=== PATIENT | male | born 1965 | race Caucasian/White ===

== ENCOUNTER 2020-01-29 17:33 | Emergency (ER) | payer OTHER ==
[2020-01-29] MEDS ORDERED: LACTATED RINGERS SOLUTION 1000 ML INFUS.BAG IV ONE (17:52)
--- NOTE | 2020-01-29 17:52 | PDOC ---
Documentation entered by Vidhi Silveira SCRIBE, acting as scribe for Rosalva Mariee DO. Rosalva Mariee DO: This documentation has been prepared by the adrianeibe, Vidhi Silveira SCRIBE, under my direction and personally reviewed by me in its entirety. I confirm that the documentation accurately reflects all work, treatment, procedures, and medical decision making performed by me. History of Present Illness - General Chief Complaint: Chest Pain Stated Complaint: CHEST PAIN X 20 SECONDS History Source: Patient Exam Limitations: No Limitations - History of Present Illness Initial Comments: 01/29/20 18:09 The patient is a 54-year-old male with a past medical history significant for Thyroid CA s/p total thyroidectomy, HLD, Ascending aortic aneurysm (recent CT 2 weeks ago, aneurysm measuring at 4.9cm, next CT and stress echo in 3 months), bicuspid aortic valve and skull fracture (at age 22) who presents to the emergency department with chest pain. The patient reports about 15 minutes prior to arrival he was watching TV, he had an acute onset of sharp, intense, quick left sided chest pain lasting less than 20 seconds. Denies radiation to the arm, back or jaws. Denies associated symptoms of diaphoresis, shortness of breath, pain with deep breathing. The patient reports due to caution of the aneurysm he wanted to be evaluated. The patient reports he hasnt had a similar chest pain in about 3-4 years and was concerned. The patient reports earlier today he was i n the sun for a while, but reports drinking adequate water. The patient reports recently changing his work up routine about 3 weeks ago but states it is within the guidelines. Denies recent travel, prolonged immobilization, recent fever, or chills. Denies abdominal pain, nausea, vomiting, diarrhea, or urinary symptoms. The patient reports he was diagnosed with an aneurysm in 2010 after [place] The patient reports the CT at that time showed a 4.2cm ascending aneurysm. The patient reports he will have surgery once the aneurysm is 5.0cm or greater instead of 5.5cm due to the bicuspid aortic valve. Allergies: NKA Social history: social use of alcohol. PCP: Dr. Marcellus Jara ([facility]) Cardiothoracic surgery: Dr. Jeremiah Rankin ([facility]). Fire Manager: Dr. Edgardo Guevara ([facility]) Past History - Medical History Allergies/Adverse Reactions: Allergies Allergy/AdvReac Type Severity Reaction Status Date / Time No Known Allergies Allergy Verified 09/28/11 15:56 Home Medications: Ambulatory Orders Cephalexin Monohydrate [Keflex] 500 mg PO Q6H #28 capsule 09/28/11 Doxycycline Monohydrate [Adoxa] 100 mg PO BID #28 tablet 09/28/11 Thyroid Disease: Yes - Psycho-Social/Smoking History Smoking Status: No Number of Cigarettes Smoked Daily: 0 Review of Systems - Review of Systems Able to Perform ROS?: Yes Comments:: 01/29/20 18:09 GENERAL/CONSTITUTIONAL: No fever or chills. No weakness. HEAD, EYES, EARS, NOSE AND THROAT: No change in vision. No ear pain or discharge. No sore throat. GASTROINTESTINAL: No abdominal pain. No nausea, vomiting, diarrhea or constipation. GENITOURINARY: No dysuria, hematuria, frequency, or change in urination. CARDIOVASCULAR: +nonradiating, sharp left sided chest pain lasting for 20 seconds. Denies diaphoresis, shortness of breath or palpitations. Denies recent travel, prolonged immobilization. Denies chest pain with deep breathing. RESPIRATORY: No cough, wheezing, or hemoptysis. MUSCULOSKELETAL: No joint or muscle swelling or pain. No neck or back pain. SKIN: No rash NEUROLOGIC: No headache, vertigo, loss of consciousness, or change in strength/sensation. ENDOCRINE: No increased thirst. No abnormal weight change. HEMATOLOGIC/LYMPHATIC: No anemia, easy bleeding, or history of blood clots. ALLERGIC/IMMUNOLOGIC: No hives or skin allergy. *Physical Exam - Physical Exam 01/29/20 18:13 Constitutional: Awake, alert, oriented. No acute distress. Head: Normocephalic. Atraumatic Eyes: PERRL. EOMI. Conjunctivae are not pale. ENT: Mucous membranes are moist and intact. Posterior pharynx without exudate or erythema. Uvula midline. Neck: Supple. Full ROM. No lymphadenopathy. Cardiovascular: Regular rate. Regular rhythm. S1, S2 regular. No murmur. Pulmonary/Chest: No evidence of respiratory distress. Clear to auscultation bilaterally No wheezing, rales or rhonchi. Abdominal: Soft and non-distended. There is no tenderness. No rebound, guarding or rigidity. No organomegaly. No palpable masses. Good bowel sounds. Back: No CVA tenderness. Musculoskeletal: No lower extremity edema. No edema. No cyanosis. No clubbing. Full range of motion in all extremities. Nocalf tenderness. Radial/pedal pulses are intact and 2+ bilaterally Skin: Skin is warm and dry. No petechiae. No purpura. Neurological: Alert and oriented to person, place, and time. Cranial nerves II-XII are grossly intact. Normal speech. Strength is grossly symmetric. No sensory deficits. Normal gait. Psychiatric: Good eye contact. Normal interaction, affect and behavior. Heart Score/ECG Review - ECG Intrepretation Comment:: 01/29/20 17:49 sinus at 67, nl axis, t wave inversions iii which are nonspecific, nl interval, no acute st changes ED Treatment Course - LABORATORY CBC & Chemistry Diagram: 01/29/20 17:47 01/29/20 17:47 Medical Decision Making - Medical Decision Making 01/29/20 17:50 a/p: 54yo male with hx of ascending aortic aneurysm - last measuring 4.9cm, follows at [facility] for treatment with sharp L sided cp -pain only lasted 20 seconds, nonradiating, no assoc symptoms -pt without pleuritic cp now -no abd pain, no back pain -hx of bicuspid aortic valve -hx of thryoid ca, s/p treatment -concern given aneurysm hx for worsening aneurysm vs dissection, acs eval -will send labs, ekg, cta chest -will monitor and reassess 01/29/20 18:18 blood counts are stable 01/29/20 18:[address] and trop 01/29/20 18:45 trop neg 01/29/20 18:[address] pending read will need repeat trop pt signed out to the oncoming ED physician pending ct read and further eval Discharge - Discharge Information Problems reviewed: Yes Clinical Impression/Diagnosis: Chest pain Condition: Fair - Follow up/Referral Referrals: ON STAFF,NOT [Primary Care Provider] - - Patient Discharge Instructions - Post Discharge Activity
[2020-01-29 18:02] VITALS: TEMP 98.9; BMI 28.5
[2020-01-29 18:13] LABS: EOS % 0.7 % (0-4.5); HEMATOCRIT 36.9 % (35.4-49); HEMOGLOBIN 12.4 GM/dl (11.7-16.9); MCH 30.5 pg (25.7-33.7); MCHC 33.7 g/dl (32.0-35.9); MEAN CELL VOLUME 90.4 fl (80-96); MEAN PLT VOLUME 7.1 fl (7.5-11.1); MONO % 12.4 % (3.8-10.2); NEUT % 45.9 % (42.8-82.8); PLATELET COUNT 208 K/MM3 (134-434); RBC 4.08 M/mm3 (4.00-5.60); RDW 12.7 % (11.9-15.9); WHITE BLOOD COUNT 4.6 K/mm3 (4.0-10.8)
[2020-01-29 18:20] LABS: ALBUMIN 3.5 g/dl (3.4-5.0); BILIRUBIN,TOTAL 0.6 mg/dl (0.2-1); CALCIUM 9.1 mg/dl (8.5-10); MAGNESIUM 1.9 mg/dL (1.8-2.4); POTASSIUM 4.1 mmol/L (3.5-5.1); TOT PROT 6.2 g/dl (6.4-8.2)
[2020-01-29 18:21] LABS: ACTIVATED PTT 25.8 SECONDS (25.2-36.5)
[2020-01-29 18:25] LABS: INR 1.01 (0.82-1.09); PROTHROMBIN TIME (PATIENT) 11.3 SEC (10.2-13.0)
[2020-01-29 19:12] LABS: N-TERMINAL BNP 48.4 pg/ml (5-125)
--- NOTE | 2020-01-29 20:10 | PDOC ---
*Physical Exam - Vital Signs Last Vital Signs Temp Pulse Resp BP Pulse Ox 98.9 F 71 22 H 111/72 98 01/29/20 17:41 01/29/20 19:45 01/29/20 19:45 01/29/20 19:45 01/29/20 19:45 ED Treatment Course - LABORATORY CBC & Chemistry Diagram: 01/29/20 17:47 01/29/20 17:47 - ADDITIONAL ORDERS Additional order review: Laboratory Results 01/29/20 01/29/20 01/29/20 17:50 17:47 17:47 PT with INR INR PTT (Actin FS) Sodium Potassium Chloride Carbon Dioxide Anion Gap BUN Creatinine Est GFR (CKD-EPI)AfAm Est GFR (CKD-EPI)NonAf Random Glucose Calcium Magnesium Total Bilirubin AST ALT Alkaline Phosphatase Creatine Kinase Troponin I < 0.03 B-Natriuretic Peptide Total Protein Albumin TSH Blood Type A POSITIVE A POSITIVE Antibody Screen Negative 01/29/20 01/29/20 17:47 17:47 PT with INR 11.3 INR 1.01 PTT (Actin FS) 25.8 Sodium 137 Potassium 4.1 Chloride 101 Carbon Dioxide 22 Anion Gap 14 BUN 22.0 H Creatinine 1.0 Est GFR (CKD-EPI)AfAm 99.85 Est GFR (CKD-EPI)NonAf 86.15 Random Glucose 94 Calcium 9.1 Magnesium 1.9 Total Bilirubin 0.6 AST 24 ALT 26 Alkaline Phosphatase 29 L Creatine Kinase 137 Troponin I B-Natriuretic Peptide 48.4 Total Protein 6.2 L Albumin 3.5 TSH 0.15 L Blood Type Antibody Screen 01/29/20 17:47 RBC 4.08 MCV 90.4 MCHC 33.7 RDW 12.7 MPV 7.1 L Neutrophils % 45.9 Lymphocytes % 40.0 Monocytes % 12.4 H Eosinophils % 0.7 Basophils % 1.0 - Medications Given in the ED: ED Medications Discontinued Medications Generic Name Dose Route Start Last Admin Trade Name Freq PRN Reason Stop Dose Admin Lactated Ringer's 1,000 ml 01/29/20 17:52 01/29/20 18:00 Lactated Ringers Solution IV 01/29/20 17:53 1,000 ml ONCE ONE Administration ED Progress Note - Progress Note Progress Note: 01/29/20 20:09 This patient was transferred to [place] from Dr. Mariee at 1900 hrs. Patient is a 54-year-old male who had some chest pain at rest it was sharp and lasted a few minutes. Patient has history significant for aortic aneurysm that is being followed by CAT scan. Patient's last CAT scan was approximately 2 weeks ago where the aneurysm was 4.9 cm. Cut off for surgery for this patient is 5 cm. Patient's initial troponin was negative. Second troponin will be done at 845 and CAT scan is still pending Discharge - Discharge Information Problems reviewed: Yes Clinical Impression/Diagnosis: Chest pain Qualifiers: Chest pain type: unspecified Qualified Code(s): R07.9 - Chest pain, unspecified Condition: Fair Disposition: HOME - Follow up/Referral Referrals: ON STAFF,NOT [Primary Care Provider] - - Patient Discharge Instructions Patient Printed Discharge Instructions: DI for Atypical Chest Pain Additional Instructions: Return to the emergency department immediately with ANY new, persistent or worsening symptoms. Continue any medications as previously prescribed by your physician. You should follow up with your cardiology doctor, call him on Friday and let him know your care and make an appointment to follow-up as soon as possible regarding today's emergency department visit. . Please make sure your doctor reviews the results of your emergency evaluation. Thank you for coming to the Emergency Department today for your care. It was a pleasure to see you today. Please note that your evaluation is INCOMPLETE until you follow-up with your doctor. - Post Discharge Activity
[2020-01-29 20:48] VITALS: BP 112/77; PULSE 70
--- NOTE | 2020-01-30 17:17 | EKG ---
Test Reason : Blood Pressure : / mmHG Vent. Rate : 067 BPM Atrial Rate : 067 BPM P-R Int : 178 ms QRS Dur : 100 ms QT Int : 382 ms P-R-T Axes : 053 -15 030 degrees QTc Int : 403 ms NORMAL SINUS RHYTHM NORMAL ECG NO PREVIOUS ECGS AVAILABLE Confirmed by MD Kai, Koko ([id number]) on 01/30/2020 5:16:58 PM Referred By: Confirmed By:Koko Quinn MD
== END 2020-01-29 21:35 | disposition home or self-care (01) ==
LOC: FER 17:33 → SUPCPDRO 17:33 → FER 21:35
DX: R07.9 Chest pain, unspecified (principal)
CPT/HCPCS: 36415; 71275-TC; 74174-TC; 80053; 82550; 83735; 83880; 84443; 84484; 85025; 85610; 85730; 86850; 86900; 86901; 93005; 99285-25; Q9967